=== PATIENT | male | born 1945 | race African-American/Black ===

== ENCOUNTER → 2017-09-30 | Outpatient (CLI) | payer MEDICARE, OTHER ==
[2017-09-30 16:11] LABS: Valproic Acid (Depakene) 80.8 ug/mL
== END | disposition home or self-care (01) ==
LOC: LABWHC1 15:30
PROVIDERS: ATTEND Psychiatry & Neurology Neurology
DX: G40.909 Epilepsy, unspecified, not intractable, without status epilepticus (principal)
CPT/HCPCS: 36415; 80156; 80164; 80177

== ENCOUNTER 2018-08-12 13:19 | Emergency (ER) | payer MEDICARE, OTHER ==
--- NOTE | 2018-08-12 14:32 | ED ---
General Adult HPI <Momo Carlisle - Last Filed: 08/12/18 18:00> - General Source: patient Mode of arrival: wheelchair Limitations: no limitations <TrevorcrystalBernard ugarte - Last Filed: 08/13/18 07:15> - General Chief complaint: Recheck/Abnormal Lab/Rx Stated complaint: Poss infection on buttocks, reaction to meds Time Seen by Provider: 08/12/18 13:58 - History of Present Illness Initial comments: Dictation was produced using [employer] dictation software. please excuse any grammatical, word or spelling errors. Chief Complaint: 73-year-old male with past medical history of mental r etardation, distal edema, hypertension and seizure disorder presents with drainage coming from. Rectal wound site. History of Present Illness: She denies 73-year-old male. He currently has a consumer advocate. Patient lives at a assisted living facility home under the care of his primary consumer advocate. Patient was recently admitted to the hospital where he was discharged with the tentative diagnosis of ulcer colitis. Patient is currently on Levaquin and Flagyl. Patient was at his usual state of health when his diaper was changed. They noticed mucus drainage to his diaper. Patient otherwise has been acting appropriately tolerating by mouth and eating regularly. [employer] was concerned given that she was worried there was worsening infection from the perirectal site. Unable to provide a tract this time secondary to baseline mental status. The ROS documented in this emergency department record has been reviewed and confirmed by me. Those systems with pertinent positive or negative responses have been documented in the HPI. All other systems are other negative and/or noncontributory. PHYSICAL EXAM: General Impression: not in acute distress HEENT: Normocephalic atraumatic, extra-ocular movements intact, pupils equal and reactive to light bilaterally, mucous membranes moist. Cardiovascular: Heart regular rate and rhythm, S1&S2 audible, no murmurs, rubs or gallops Chest: Lungs clear to auscultation bilaterally, no rhonchi, no wheeze, no rales Abdomen: Bowel sounds present, abdomen soft, non-tender, non-distended, no organomegaly Musculoskeletal: Pulses present and equal in all extremities, no peripheral edema Motor: no focal deficits noted Neurological: CN II-XII grossly intact, no focal motor or sensory deficits noted Skin: Intact with no visualized rashes Rectal exam: Well healing shallow wound to the 2 o'clock position with good granulation tissue, no induration around the wound site ED course: 73-year-old male presents with drainage from perirectal wound site. Upon arrival are within normal limits. Wound appears not infected at this time. Patient is on antibiotics. Wound is well-appearing at this time no overt signs of infection. Laboratory evaluation was obtained. Mild leukocytosis of 12.7. Rest of CBC is grossly unremarkable. Metabolic panel shows mild non-gap acidosis. Elevated renal markers which appear to be at patient's baseline. Rest metabolic is unremarkable. Stool occult blood is negative. Acute abdominal series shows chronic rib fractures. There is also note of scattered small colonic air-fluid level suggesting liquid stool secondary from ileus or enteritis. Patient is well-appearing at this time. Patient tolerated by mouth. Patient's wound appears well. No signs of infection. Furthermore, patient is on Levaquin and Flagyl. Should there be any infection likely be covered by antibiotics that patient's currently taking. Patient clear for discharge with instructions to follow-up with primary care physician for outpatient management of symptoms. Patient's change in eating habits may likely be secondary to drug adverse effect. Nonetheless, patient is well-appearing and eating baseline and tolerating by mouth. Patient clear for discharge. (Bernard Reveles) - Related Data Home Medications Medication Instructions Recorded Confirmed Budesonide [Pulmicort] 0.5 mg INHALATION RT-BID 04/24/18 08/12/18 Diazepam [Valium] 10 mg PO DIRECTED PRN 04/24/18 08/12/18 Diltiazem HCl [Cartia Xt] 240 mg PO DAILY@1600 04/24/18 08/12/18 Divalproex Sodium [Depakote] 500 mg PO TID@0700,1599,199904/24/18 08/12/18 Levothyroxine Sodium [Synthroid] 25 mcg PO DAILY 04/24/18 08/12/18 Montelukast [Singulair] 10 mg PO HS 04/24/18 08/12/18 Polyethylene Glycol 3350 [Miralax] 17 gm PO DAILY PRN 04/24/18 08/12/18 Sennosides [Senna] 8.6 mg PO BID@07,199904/24/18 08/12/18 carBAMazepine [TEGretol] 100 mg PO DAILY@0700 04/24/18 08/12/18 carBAMazepine [TEGretol] 200 mg PO HS 04/24/18 08/12/18 clonazePAM [KlonoPIN] 0.5 mg PO HS 04/24/18 08/12/18 levETIRAcetam [Keppra] 500 mg PO BID@0700,1600 04/24/18 08/12/18 Albuterol Nebulized [Ventolin 2.5 mg INHALATION RT-QID PRN 08/07/18 08/12/18 Nebulized] Loratadine [Claritin] 10 mg PO DAILY@1400 08/07/18 08/12/18 Magnesium Hydroxide [Milk of 2,400 mg PO DAILY PRN 08/07/18 08/12/18 Magnesia] Mupirocin Calcium [Bactroban 2% 1 applic TOPICAL BID 08/07/18 08/12/18 Cream] Na Phos,M-B/Na Phos,Di-Ba [Fleet 133 ml RECTAL DAILY PRN 08/07/18 08/12/18 Adult] levETIRAcetam [Keppra] 1,000 mg PO HS 08/07/18 08/12/18 Previous Rx's Medication Instructions Recorded Levofloxacin [Levaquin] 500 mg PO DAILY #4 tab 08/10/18 metroNIDAZOLE [Flagyl] 500 mg PO Q8HR #12 tab 08/10/18 Allergies Allergy/AdvReac Type Severity Reaction Status Date / Time bacitracin Allergy Unknown Verified 08/12/18 14:38 [From Neosporin ([id number])] doxycycline Allergy Unknown Verified 08/12/18 14:38 erythromycin base Allergy Unknown Verified 08/12/18 14:38 neomycin Allergy Unknown Verified 08/12/18 14:38 [From Neosporin ([id number])] Penicillins Allergy Unknown Verified 08/12/18 14:38 polymyxin B Allergy Unknown Verified 08/12/18 14:38 [From Neosporin ([id number])] Review of Systems ROS Other: All systems not noted in ROS Statement are negative. <Momo Carlisle - Last Filed: 08/12/18 18:00> ROS Other: All systems not noted in ROS Statement are negative. <Bernard Reveles Last Filed: 08/13/18 07:15> ROS Statement: Those systems with pertinent positive or pertinent negative responses have been documented in the HPI. Past Medical History Past Medical History: Hyperlipidemia, Hypertension, Seizure Disorder Additional Past Medical History / Comment(s): Severe Retardation- caregiver states cooperative, walks with assistance, Weakness left arm & leg wears brace on left ankle., wears brief for incontinence., hospitalized for pneumonia (Mar 2018)., Last Seizure 03/02/18). No hearing or vision problems, missing teeth., Can only take medications with applesauce or pudding. History of Any Multi-Drug Resistant Organisms: None Reported Past Surgical History: Unable to Obtain Additional Past Surgical History / Comment(s): surgery as a baby- per mother. Past Anesthesia/Blood Transfusion Reactions: Unable to Obtain Additional Past Anesthesia/Blood Transfusion Reaction / Comment(s): per mother no family hx of problems with anesthesia that she is aware of. Past Psychological History: Unable to Obtain Smoking Status: Unknown if ever smoked Past Alcohol Use History: None Reported Past Drug Use History: None Reported - Past Family History Mother Family Medical History: No Reported History <Bernard Reveles - Last Filed: 08/13/18 07:15> General Exam Limitations: no limitations <Bernard Reveles - Last Filed: 08/13/18 07:15> Course Vital Signs 08/12/18 08/12/18 08/12/18 13:40 16:28 18:38 Temperature 98.5 F 98.0 F Pulse Rate 94 89 85 Respiratory 16 14 14 Rate Blood Pressure 133/78 140/82 141/83 O2 Sat by Pulse 96 97 98 Oximetry Medical Decision Making - Lab Data Result diagrams: 08/12/18 15:00 08/12/18 15:00 - Radiology Data Radiology results: image reviewed (Chest x-ray shows left-sided rib fractures that appear subacute or chronic. Atelectasis versus infiltrate. Abdominal x- ray shows some air-fluid levels.) <Momo Carlisle - Last Filed: 08/12/18 18:00> - Lab Data Result diagrams: 08/12/18 15:00 08/12/18 15:00 <Bernard Reveles - Last Filed: 08/13/18 07:15> - Medical Decision Making Call received from Dr. Murray who requested I discharged patient. He did forget to do this prior to end of shift. He felt patient could be safely discharged and follow-up with primary, no further treatment or intervention needed. He is aware of results. Patient reevaluated. Family updated. (Momo Carlisle) - Lab Data Lab Results 08/12/18 08/12/18 08/12/18 Range/Units 15:00 15:00 15:00 WBC 12.7 H (3.8-10.6) k/uL RBC 3.52 L (4.30-5.90) m/uL Hgb 11.2 L (13.0-17.5) gm/dL Hct 35.3 L (39.0-53.0) % MCV 100.4 H (80.0-100.0) fL MCH 31.8 (25.0-35.0) pg MCHC 31.7 (31.0-37.0) g/dL RDW 13.3 (11.5-15.5) % Plt Count 361 (150-450) k/uL Neutrophils % 70 % Lymphocytes % 15 % Monocytes % 10 % Eosinophils % 3 % Basophils % 0 % Neutrophils # 8.8 H (1.3-7.7) k/uL Lymphocytes # 1.9 (1.0-4.8) k/uL Monocytes # 1.3 H (0-1.0) k/uL Eosinophils # 0.4 (0-0.7) k/uL Basophils # 0.1 (0-0.2) k/uL Sodium 145 (137-145) mmol/L Potassium 4.7 (3.5-5.1) mmol/L Chloride 117 H (98-107) mmol/L Carbon Dioxide 21 L (22-30) mmol/L Anion Gap 7 mmol/L BUN 46 H (9-20) mg/dL Creatinine 2.11 H (0.66-1.25) mg/dL Est GFR (CKD-EPI)AfAm 35 (>60 ml/min/1.73 sqM) Est GFR (CKD-EPI)NonAf 30 (>60 ml/min/1.73 sqM) Glucose 83 (74-99) mg/dL Calcium 9.3 (8.4-10.2) mg/dL Total Bilirubin 0.5 (0.2-1.3) mg/dL AST 22 (17-59) U/L ALT 20 L (21-72) U/L Alkaline Phosphatase 66 (38-126) U/L Total Protein 5.7 L (6.3-8.2) g/dL Albumin 2.7 L (3.5-5.0) g/dL Stool Occult Blood Negative (Negative) Disposition Is patient prescribed a controlled substance at d/c from ED?: No Time of Disposition: 18:01 <Momo Carlisle - Last Filed: 08/12/18 18:00> Is patient prescribed a controlled substance at d/c from ED?: No <Bernard Reveles - Last Filed: 08/13/18 07:15> Clinical Impression: Buttock wound Disposition: HOME SELF-CARE Condition: Stable Instructions (If sedation given, give patient instructions): Chronic Wound Care (ED) Additional Instructions: Please follow-up with primary care physician in the next day or 2 for recheck. Return for increased size of wound, redness, worsening drainage, fevers, worsening symptoms or other concerns. Referrals: Santy Villeda MD [Primary Care Provider] - 1-2 days
[2018-08-12 15:15] LABS: Basophils # (A) 0.1 k/uL (0-0.2); Basophils % (A) 0 %; Eosinophils # (A) 0.4 k/uL (0-0.7); Eosinophils % (A) 3 %; HCT 35.3 % (39.0-53.0); HGB 11.2 gm/dL (13.0-17.5); Lymphocytes # (A) 1.9 k/uL (1.0-4.8); Lymphocytes % (A) 15 %; MCH 31.8 pg (25.0-35.0); MCHC 31.7 g/dL (31.0-37.0); MCV 100.4 fL (80.0-100.0); Mean Platelet Volume 7.6; Monocytes # (A) 1.3 k/uL (0-1.0); Monocytes % (A) 10 %; Neutrophils # (A) 8.8 k/uL (1.3-7.7); Neutrophils % (A) 70 %; Platelet Count 361 k/uL (150-450); RBC 3.52 m/uL (4.30-5.90); RDW 13.3 % (11.5-15.5); WBC 12.7 k/uL (3.8-10.6)
[2018-08-12 15:21] LABS: Albumin 2.7 g/dL (3.5-5.0); Calcium 9.3 mg/dL (8.4-10.2); Potassium 4.7 mmol/L (3.5-5.1); Total Bilirubin 0.5 mg/dL (0.2-1.3); Total Protein 5.7 g/dL (6.3-8.2)
[2018-08-12] MEDS ORDERED: FUROSEMIDE 10 MG/ML 4 ML VIAL IV STA (15:41)
--- NOTE | 2018-08-12 16:00 | XR ---
EXAMINATION TYPE: Acute abdominal series DATE OF EXAM: 08/12/2018 COMPARISON: NONE HISTORY: 73-year-old male possible infection and buttocks, pain FINDINGS: Multiple left-sided rib fractures appear subacute or chronic. Heart upper limits of normal in size. L eft basilar and retrocardiac opacity is noted. No evidence for free intraperitoneal air. Scattered small air-fluid levels within the colon. No dilated small bowel loops. No suspicious calcification seen. IMPRESSION: 1. Multiple left-sided rib fracture deformities appear subacute to chronic. Likely chronic. Clinicall y correlate. 2. Hypoventilatory changes. Prominent retrocardiac and left basilar atelectasis or infiltrate. 3. Scattered small colonic air-fluid levels suggest liquid stool that could be from generalized ileus or enteritis.
[2018-08-12 16:30] VITALS: RESP 14
[2018-08-12] MEDS ORDERED: levETIRAcetam 500 MG TAB PO STA (18:09)
[2018-08-12] MEDS ORDERED: DIVALPROEX 500 MG TABLET.DR PO STA (18:10)
[2018-08-12] MEDS ORDERED: DILTIAZEM CD 240 MG CAP.ER.24H PO STA (18:11)
[2018-08-12 18:41] VITALS: BP 141/83; PULSE 85; TEMP 98
== END 2018-08-12 18:51 | disposition home or self-care (01) ==
LOC: EC 13:19
DX: S31.809A Unspecified open wound of unspecified buttock, initial encounter (principal); I10 Essential (primary) hypertension; G40.909 Epilepsy, unspecified, not intractable, without status epilepticus; Z79.51 Long term (current) use of inhaled steroids; Z79.890 Hormone replacement therapy; Z79.899 Other long term (current) drug therapy; Z88.1 Allergy status to other antibiotic agents; Z88.0 Allergy status to penicillin; X58.XXXA Exposure to other specified factors, initial encounter
CPT/HCPCS: 36415; 74022; 80053; 82272; 85025; 99283

== ENCOUNTER 2018-08-24 18:15 | Emergency (ER) | payer MEDICARE, OTHER ==
--- NOTE | 2018-08-24 19:36 | ED ---
General Adult HPI - General Chief complaint: Recheck/Abnormal Lab/Rx Stated complaint: wound Time Seen by Provider: 08/24/18 19:06 Source: patient, RN notes reviewed, old records reviewed Mode of arrival: ambulatory Limitations: no limitations - History of Present Illness Initial comments: Patient is a 73-year-old male presents emergency department today with his caregivers. They present today for concerns for a wound over his coccyx. They report that it has been stable since his last evaluation on 327. The report that there is been no significant change they can't determine if it's healing or worsening. Patient complains of no pain over the area. Patient was recently admitted for ulcerative colitis having diarrhea. Difficult time keeping the area cleaned. Patient has had no fevers or chills. His appetite is returning. Patient's caregivers report that he recently finished antibiotics in the stools are now returning to normal. Patient does not see wound care at this time. - Related Data Home Medications Medication Instructions Recorded Confirmed Budesonide [Pulmicort] 0.5 mg INHALATION RT-BID 04/24/18 08/12/18 Diazepam [Valium] 10 mg PO DIRECTED PRN 04/24/18 08/12/18 Diltiazem HCl [Cartia Xt] 240 mg PO DAILY@1600 04/24/18 08/12/18 Divalproex Sodium [Depakote] 500 mg PO TID@0700,1600,199904/24/18 08/12/18 Levothyroxine Sodium [Synthroid] 25 mcg PO DAILY 04/24/18 08/12/18 Montelukast [Singulair] 10 mg PO HS 04/24/18 08/12/18 Polyethylene Glycol 3350 [Miralax] 17 gm PO DAILY PRN 04/24/18 08/12/18 Sennosides [Senna] 8.6 mg PO BID@0700,199904/24/18 08/12/18 carBAMazepine [TEGretol] 100 mg PO DAILY@0700 04/24/18 08/12/18 carBAMazepine [TEGretol] 200 mg PO HS 04/24/18 08/12/18 clonazePAM [KlonoPIN] 0.5 mg PO HS 04/24/18 08/12/18 levETIRAcetam [Keppra] 500 mg PO BID@0700,1600 04/24/18 08/12/18 Albuterol Nebulized [Ventolin 2.5 mg INHALATION RT-QID PRN 08/07/18 08/12/18 Nebulized] Loratadine [Claritin] 10 mg PO DAILY@1400 08/07/18 08/12/18 Magnesium Hydroxide [Milk of 2,400 mg PO DAILY PRN 08/07/18 08/12/18 Magnesia] Mupirocin Calcium [Bactroban 2% 1 applic TOPICAL BID 08/07/18 08/12/18 Cream] Na Phos,M-B/Na Phos,Di-Ba [Fleet 133 ml RECTAL DAILY PRN 08/07/18 08/12/18 Adult] levETIRAcetam [Keppra] 1,000 mg PO HS 08/07/18 08/12/18 Previous Rx's Medication Instructions Recorded Levofloxacin [Levaquin] 500 mg PO DAILY #4 tab 08/10/18 metroNIDAZOLE [Flagyl] 500 mg PO Q8HR #12 tab 08/10/18 Collagenase [Santyl] 1 applic TOPICAL DAILY #1 tube 08/24/18 Allergies Allergy/AdvReac Type Severity Reaction Status Date / Time bacitracin Allergy Unknown Verified 08/12/18 14:38 [From Neosporin ([id number])] doxycycline Allergy Unknown Verified 08/12/18 14:38 erythromycin base Allergy Unknown Verified 08/12/18 14:38 neomycin Allergy Unknown Verified 08/12/18 14:38 [From Neosporin ([id number])] Penicillins Allergy Unknown Verified 08/12/18 14:38 polymyxin B Allergy Unknown Verified 08/12/18 14:38 [From Neosporin ([id number])] Review of Systems ROS Statement: Those systems with pertinent positive or pertinent negative responses have been documented in the HPI. ROS Other: All systems not noted in ROS Statement are negative. Past Medical History Past Medical History: Hyperlipidemia, Hypertension, Seizure Disorder Additional Past Medical History / Comment(s): Severe Retardation- caregiver states cooperative, walks with assistance, Weakness left arm & leg wears brace on left ankle., wears brief for incontinence., hospitalized for pneumonia (Mar 2018)., Last Seizure 03/02/18). No hearing or vision problems, missing teeth., Can only take medications with applesauce or pudding. History of Any Multi-Drug Resistant Organisms: None Reported Past Surgical History: Unable to Obtain Additional Past Surgical History / Comment(s): surgery as a baby- per mother. Past Anesthesia/Blood Transfusion Reactions: Unable to Obtain Additional Past Anesthesia/Blood Transfusion Reaction / Comment(s): per mother no family hx of problems with anesthesia that she is aware of. Past Psychological History: Unable to Obtain Smoking Status: Unknown if ever smoked Past Alcohol Use History: None Reported Past Drug Use History: None Reported - Past Family History Mother Family Medical History: No Reported History General Exam - General Exam Comments Initial Comments: 73-year-old male. Patient has a history of mental retardation. Nonverbal. Able to ambulate. Contractures of her upper extremities noted. Limitations: no limitations General appearance: alert, in no apparent distress Head exam: Present: atraumatic, normocephalic, normal inspection Eye exam: Present: normal appearance ENT exam: Present: normal exam, mucous membranes moist Neck exam: Present: normal inspection Respiratory exam: Present: normal lung sounds bilaterally. Absent: respiratory distress, wheezes, rales, rhonchi, stridor Cardiovascular Exam: Present: regular rate, normal rhythm, normal heart sounds. Absent: systolic murmur, diastolic murmur, rubs, gallop, clicks GI/Abdominal exam: Present: soft, normal bowel sounds. Absent: distended, tenderness, guarding, rebound, rigid Extremities exam: Present: normal inspection, full ROM, normal capillary refill. Absent: tenderness, pedal edema, joint swelling, calf tenderness Back exam: Present: normal inspection, other ( has a 2 cm x 3 cm coccyx wound. No drainage noted from the site. There appears to be some granulation scar tissue over the area. No stranding erythema. His no tenderness to palpation noted.) Neurological exam: Present: alert, oriented X3, CN II-XII intact Psychiatric exam: Present: normal affect, normal mood Skin exam: Present: warm, dry, intact, normal color. Absent: rash Course Vital Signs 08/24/18 18:35 Temperature 98.1 F Pulse Rate 78 Respiratory 16 Rate Blood Pressure 144/79 O2 Sat by Pulse 97 Oximetry Medical Decision Making - Medical Decision Making 18-year-old male history mental retardation nonverbal. Presents with his caregiver's concern for acute sacral and coccyx ulcer. He's been having for the past 2 weeks. After his recent admission for diarrhea for colitis. They report the area is not changed. He complains no pain. He has a 2 cigarette 3 cm stage III coccyx decubital ulcer. No purulent drainage noted at this time. He has no fevers. He otherwise appears well. I discussed the Patient needs follow-up with wound care. At this time we'll put the Patient on Santyl cream. I discussed that they should follow-up with wound care and their PCP. Discussed that they need to question is mature with pillows and keep him up ambulating often. I discussed the history sleeps on his side and not on the sites. Patient will be started orally boxes recently got over Levaquin and Flagyl. All questions answered return parameters were discussed. Disposition Clinical Impression: Buttock wound Disposition: HOME SELF-CARE Condition: Good Instructions (If sedation given, give patient instructions): Chronic Wounds (ED) Additional Instructions: Patient advised to follow-up with primary care doctor. Patient should return to emergency department if any alarming signs or symptoms occur. Follow-up with wound care clinic as well. Apply the cream over the area and try to keep it dry as possible. Keep the Patient rotated and to avoid excessive pressure on the buttocks. Prescriptions: Collagenase [Santyl] 1 applic TOPICAL DAILY #1 tube Is patient prescribed a controlled substance at d/c from ED?: No Referrals: Santy Villeda MD [Primary Care Provider] - 1-2 days Time of Disposition: 19:34
[2018-08-24 19:56] VITALS: BP 133/52; PULSE 71; RESP 18; TEMP 98.5
== END 2018-08-24 19:51 | disposition home or self-care (01) ==
LOC: EC 18:15
DX: L89.153 Pressure ulcer of sacral region, stage 3 (principal); E78.5 Hyperlipidemia, unspecified; I10 Essential (primary) hypertension; G40.909 Epilepsy, unspecified, not intractable, without status epilepticus; Z88.0 Allergy status to penicillin; Z88.1 Allergy status to other antibiotic agents; Z79.51 Long term (current) use of inhaled steroids; Z79.899 Other long term (current) drug therapy
CPT/HCPCS: 87070; 87205; 99283